=== PATIENT | male | born 1995 | race Caucasian/White ===

== ENCOUNTER 2019-09-28 23:26 | Emergency (ER) | payer MEDICAID, SELFPAY ==
[2019-09-28 23:32] VITALS: BP 147/81; PULSE 100; RESP 18; TEMP 36.9; O2SAT 98
--- NOTE | 2019-09-28 23:32 | ED.GENADUL_ITS ---
Discharge Plan Disposition Patient Disposition: HOME Condition: Good Discharge Details Chief Complaint: Laceration Clinical Impression: Finger laceration Primary Care Provider: Olga Bethea ED Provider: Gi Lee Discharge Instructions Instructions: Finger Laceration (ED) Additional Instructions: Keep wound clean, dry, covered. Monitor for signs of infection including redness, warmth, drainage, increased pain, fever/chills. If you develop these or other new/worsening symptoms please seek care urgently once again. Please keep covered when at work, this will help the wound from catching. Follow-up with primary care if pain persist in the next week. Referrals: Olga Bethea MD [Primary Care Provider] - Medical Decision Making Patient is a 24-year-old [id number] male presenting complaint of laceration to the left middle finger. Reports that 3 days ago he was opening a block of cheese with a knife when he slipped and cut his finger. Since that time, he has had discomfort over the area of laceration. Is not taking anything for his discomfort. His last tetanus was in 2017. On exam, he has a superficial 1 cm curvilinear laceration to the middle phalanx of the left middle finger. Sensation is intact, is good flexion against resistance, no evidence of ligamentous or bony injury. Advised that given the length of time since his injury, closure is not able to be performed at this time in order I feel that is needed at this point. I do not see any evidence of infection but I did discuss the symptoms with the patient when to seek care urgently once again. I advised that he try to keep this covered during the day as it catching or tugging may be what is causing his increased discomfort. Advised he may try Tylenol and ibuprofen as needed for discomfort. All his questions and concerns were addressed and he is in agreement with this plan. HPI General Mode of arrival: ambulatory . Date/Time Provider Initiated Documentation: 09/28/19 23:30 . Limitations to Documentation: no limitations . Information obtained by: patient and RN notes reviewed . History of Present Illness 24 year old M presents to the emergency department with the chief complaint of left middle finger laceration, described as moderate, with intensity rated at 5. Quality is described as aching, and is localized to the left and upper extremity. Patient reports no radiation. Patient started experiencing this day(s) (3) and it has been constant. No relieving factors improve symptom(s), No exacerbating factors reported . Patient notes no other symptoms.. Patient did receive the following treatments prior to arrival, none Related Data Allergies Allergy/AdvReac Type Severity Reaction Status Date / Time No Known Allergies Allergy Unverified 09/28/19 23:35 Review of Systems Constitutional Constitutional: Reports as per HPI, Denies chills and Denies fever(s) Musculoskeletal Musculoskeletal: Reports as per HPI Integumentary/Breasts Skin/Breast: Reports as per HPI Neurologic Neurologic: Reports as per HPI, Denies sensory deficit and Denies paresthesias [facility] Social History Smoking/Tobacco Use Status: Current every day Tobacco Type: cigarettes Alcohol Intake: current Alcohol Intake frequency: holidays/special occasions only Alcohol type: beer, wine and hard liquor Drug use: Daily Substance use type: marijuana Do you feel safe at home: Yes Do you feel safe in your relationship?: Yes Exam Const General: cooperative, healthy appearing, comfortable, no acute distress and well developed Nutritional Appearance: average body habitus and well nourished Orientation: alert and awake Resp Effort & Inspection: normal respiratory effort, able to speak in complete sentences and no respiratory distress Cardio Rate: regular rate Rhythm: regular rhythm Skin Trauma: laceration (1cm superficial laceration to middle phalanx left middle finger) Neuro General: alert and awake Cognition: normal cognition Speech: speech normal Gait: normal gait Sensory Exam: no sensory deficits noted Extrem General: full ROM, normal capillary refill and no joint enlargement Hand/finger images: 1. 1cm curvilinear laceration. Area is slightly swollen. He is able to flex against resistance without evidence of discomfort. Sensation intact. No active bleeding Psych Appearance: grossly normal and well kempt Mental Status: mental status grossly normal Speech and Movement: speech and movement normal
== END 2019-09-28 23:45 | disposition home or self-care (01) ==
LOC: ER 23:52
PROVIDERS: Emergency Provider Physician Assistant; PCP Internal Medicine
DX: S61.213A Laceration without foreign body of left middle finger without damage to nail, initial encounter (principal); W26.0XXA Contact with knife, initial encounter
CPT/HCPCS: 99282

== ENCOUNTER 2019-10-22 01:15 | Emergency (ER) | payer MEDICAID, SELFPAY ==
[2019-10-22] VITALS (46 sets, daily range): BP systolic 103–144; BP diastolic 55–92; PULSE 62–128; RESP 12–18; TEMP 36.2; O2SAT 94–100
--- NOTE | 2019-10-22 01:22 | ED.GENADUL_ITS ---
Discharge Plan Disposition Patient Disposition: HOME Condition: Good Discharge Details Chief Complaint: OD/Poison Clinical Impression: Opiate overdose Primary Care Provider: Olga Bethea ED Provider: Beltran Giraldo Home Meds and New Rx's Prescriptions: No Action No Known Home Meds RF: 0 Discharge Instructions Additional Instructions: You overdosed tonight and almost . Avoid drugs in the future. Contact a investment recovery technician if you would like help. Return to ED if problems. Medical Decision Making Patient here after accidental heroin/fentanyl overdose. He snorted, did not inject. Did not receive Narcan. Still very much under the influence. Patient placed on nasal cannula oxygen with end-tidal CO2 detector. We will monitor him for apnea and desaturations. Will re-evaluate when more awake and conversant. 05:45 - Patient is now awake and alert, ambulatory, requesting discharge. Patient declines investment recovery technician. HPI General Mode of arrival: ambulatory . Date/Time Provider Initiated Documentation: 10/22/19 01:22 . Limitations to Documentation: no limitations . Information obtained by: patient, EMS and RN notes reviewed . HPI Narrative: Patient brought in by EMS after accidental overdose of heroin/fentanyl. 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 In the last week he began using again because of drama. He denies trying to harm himself. This was accidental. He denies any medical problems. He denies any medications. Related Data Home Medications Medication Instructions Recorded Confirmed Unknown [No Known Home Meds] 10/22/19 10/22/19 Allergies Allergy/AdvReac Type Severity Reaction Status Date / Time No Known Allergies Allergy Unverified 10/22/19 01:39 General Stated Complaint: OD/Poison SHAVONNE: 3 Review of Systems Narrative: As documented in HPI otherwise negative as below. Const: no fever, chills, weakness Resp: no cough, SOB, pleuritic pain CV: no CP, diaphoresis, edema, syncope GI: no abdominal pain, nausea, vomiting, diarrhea Neuro: no headache, numbness, focal weakness [facility] Medical History (Updated 10/22/19 @ 01:26 by Beltran Giraldo MD) Hepatitis C (Chronic 10/23/92) Surgical History (Updated 10/22/19 @ 01:26 by Beltran Giraldo MD) History of open reduction and internal fixation (ORIF) procedure (Resolved) Social History Smoking/Tobacco Use Status: Current every day Tobacco Type: cigarettes and smokeless tobacco Alcohol Intake: current Alcohol Intake frequency: holidays/special occasions only Alcohol type: beer, wine and hard liquor Drug use: Daily Substance use type: marijuana Do you feel safe at home: Yes Do you feel safe in your relationship?: Yes Exam Narrative Exam Narrative: Vitals: Afebrile. Initially tachycardic and hypertensive. Room air pulse ox normal while awake. Const: Obese male unable to stay awake but easily roused. HEENT: NC/AT. Normal facial exam. Eyes: Small minimally reactive pupils. Neck: Supple. Trachea midline. Lungs: Normal respiratory effort. Lungs are clear. Cor: RRR tachy without murmur/gallop. Good radial pulses. Neuro: Sleepy but able to wake and answer questions. No gross deficits. Course Vital Signs Vital signs: Vital Signs Temperature 97.2 F L 10/22/19 01:18 Pulse 121 H 10/22/19 01:18 Respiratory Rate 18 10/22/19 01:18 Blood Pressure 144/92 H 10/22/19 01:18 Pulse Oximetry 98 10/22/19 01:18 Temperature 97.2 F L 10/22/19 01:18 Temperature Source Tympanic 10/22/19 01:18 Pulse 121 H 10/22/19 01:18 Respiratory Rate 18 10/22/19 01:18 Blood Pressure 144/92 H 10/22/19 01:18 Blood Pressure Position Supine 10/22/19 01:18 Pulse Oximetry 98 10/22/19 01:18 Oxygen Delivery Method Room Air 10/22/19 01:18 Oxygen Flow Rate 0 10/22/19 01:18 Pain Level 0 10/22/19 01:18
--- NOTE | 2019-10-22 02:39 | NUR.NOTE ---
Nursing Note: vomited about 20 cc of gastric material, states feels better, speech clearer,more alert, continues with Oxygen at 2L, CO2 level maintained 36-42. MD notified.
--- NOTE | 2019-10-22 04:12 | NUR.NOTE ---
Nursing Note:patient sleeping vital signs stable.
--- NOTE | 2019-10-22 05:21 | NUR.NOTE ---
Nursing Note: patient awake, ambulated to the bathroom without difficulty, o2 sat remains stable 97-98% on room air, po fluids taken with no n/v, patient wishes to leave, MD aware.
== END 2019-10-22 05:55 | disposition home or self-care (01) ==
PROVIDERS: Emergency Provider Emergency Medicine; PCP Internal Medicine
DX: T40.4X1A Poisoning by other synthetic narcotics, accidental (unintentional), initial encounter (principal); T40.1X1A Poisoning by heroin, accidental (unintentional), initial encounter; R11.2 Nausea with vomiting, unspecified; R00.0 Tachycardia, unspecified
CPT/HCPCS: 99285; 99284

== ENCOUNTER 2021-04-07 16:02 | Emergency (ER) | payer MEDICAID, SELFPAY ==
[2021-04-07 16:14] VITALS: BP 139/91; PULSE 100; RESP 18; TEMP 36.7; O2SAT 98
--- NOTE | 2021-04-07 16:15 | DI.RAD_ITS ---
Exam(s) XR HAND LT COMPLETE EXAM: XR HAND LT COMPLETE CLINICAL HISTORY: injury, suspect open fracture. TECHNIQUE: 2D digital imaging was performed. COMPARISON: No exams were available for comparison FINDINGS: There is mild soft tissue swelling over the dorsal aspect of the hand. However, there is no evidence of fracture or dislocation. No radiopaque foreign body. No osseous lesions. IMPRESSION: DATA REPOSITORY: RADIATION DOSE DELIVERED:
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
[2021-04-07 17:19] LABS: Abs Immature Grans 0.01 10^3/uL (0.0-0.06); Absolute Basophil Count 0.06 10^3/uL (0.0-0.2); Absolute Eosinophil Count 0.13 10^3/uL (0.0-0.7); Absolute Lymphocyte Count 1.85 10^3/uL (1.2-3.4); Absolute Monocyte Count 0.69 10^3/uL (0.1-0.8); Absolute Neutrophil Count 4.64 10^3/uL (1.2-6.7); Basophils % 0.8; Eosinophils % 1.8; HCT 46.9 % (40.0-50.0); Immature Grans % 0.1; Lymphocytes % 25.1; MCH 31.7 pg (27.0-33.0); MCHC 34.1 % (32.0-36.0); MCV 92.9 fL (80-95); MPV 9.8 fL (8.0-11.0); Monocytes % 9.3; Neutrophils % 62.9; Nucleated RBC 0 %; Platelet Count 284 10^3/uL (130-400); RBC 5.05 10^6/uL (4.36-5.78); RDW 12.6 % (11.8-14.1); RDW-SD 43.4 fL; WBC 7.38 10^3/uL (4.4-10.8)
[2021-04-07 17:29] VITALS: BP 134/77; PULSE 89; RESP 16; TEMP 36.9; O2SAT 98
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
[2021-04-07 18:09] LABS: Anion Gap 9.9 mmol/L (3-11); BUN 24 mg/dL (7-18); C-Reactive Protein 0.92 mg/dL (0.0-0.3); CO2 28.1 mmol/L (21.0-32.0); CREATININE 1.2 mg/dL (0.70-1.30); Calcium 9.3 mg/dL (8.5-10.1); Chloride 104 mmol/L (98-107); Glucose 133 mg/dL (74-106); Potassium 4.2 mmol/L (3.5-5.1); Sodium 142 mmol/L (136-145)
[2021-04-07] MEDS: Cephalexin 500 MG CAP, 4 CAPS/BTL PO (18:19)
[2021-04-07 18:58] VITALS: BP 124/75; PULSE 89; RESP 16; TEMP 36.7; O2SAT 98
== END 2021-04-07 18:52 | disposition home or self-care (01) ==
PROVIDERS: Emergency Provider Physician Assistant
DX: L03.114 Cellulitis of left upper limb (principal); S61.412A Laceration without foreign body of left hand, initial encounter; W27.0XXA Contact with workbench tool, initial encounter
CPT/HCPCS: 80048; 96365; 99284; 73130; 85025; 86140; 99283; J0690

== ENCOUNTER → 2022-01-09 12:37 | Outpatient (CLI) | payer MEDICAID, SELFPAY ==
--- NOTE | 2022-01-09 | DI.RAD_ITS ---
Exam(s) XR RIBS BI INCLUDE CHEST EXAM: XR RIBS BI INCLUDE CHEST CLINICAL HISTORY: ANTERIOR CHEST WALL PAIN R07.89 TECHNIQUE: 2D digital imaging was performed. COMPARISON: No exams were available for comparison FINDINGS: MEDIASTINUM: Normal. HEART: Normal. PULMONARY VASCULATURE: Normal. LUNGS: Clear. PLEURAL SPACE: No pleural effusion or pneumothorax. BONE:Normal. RIGHT RIBS: Normal. OTHER FINDINGS:Normal. IMPRESSION: 1. No acute pulmonary findings. 2. Unremarkable right ribs. DATA REPOSITORY: RADIATION DOSE DELIVERED:
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
== END ==
PROVIDERS: Visit Provider Physician Assistant Medical
DX: M25.512 Pain in left shoulder (principal); R07.81 Pleurodynia; W19.XXXA Unspecified fall, initial encounter
CPT/HCPCS: 71046; 71110; 73030

== ENCOUNTER → 2022-03-26 13:43 | Outpatient (CLI) | payer OTHER, MEDICAID, SELFPAY ==
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
== END ==
PROVIDERS: Visit Provider Physician Assistant
DX: S69.81XA Other specified injuries of right wrist, hand and finger(s), initial encounter
CPT/HCPCS: 73130

== ENCOUNTER 2022-06-28 07:53 | Emergency (ER) | payer OTHER, SELFPAY ==
--- NOTE | 2022-06-28 08:00 | DI.RAD_ITS ---
Exam(s) XR ANKLE LT COMPLETE EXAM: XR ANKLE LT COMPLETE CLINICAL HISTORY: twisted ankle, pain lateral malleolus, r/o fx TECHNIQUE: 2D digital imaging was performed of the left ankle. Three images were obtained. AP, lat eral and oblique views were obtained. COMPARISON: No exams were available for comparison FINDINGS: BONES: No acute fracture is present. No bony destructive lesion is seen. JOINTS:The ankle mortise is normally aligned. SOFT TISSUE: Normal. IMPRESSION: Unremarkable radiographs of the left ankle. DATA REPOSITORY: RADIATION DOSE DELIVERED:
--- NOTE | 2022-06-28 08:00 | DI.RAD_ITS ---
Exam(s) XR FOOT LT COMPLETE EXAM: XR FOOT LT COMPLETE CLINICAL HISTORY: twisted ankle, pain dorsolateral foot, r/o fx. TECHNIQUE: 2D digital imaging was performed of the left foot. Three images were obtained. AP, obli que and lateral views were obtained. COMPARISON: No exams were available for comparison FINDINGS: BONES: No acute fracture is present. No bony destructive lesion is seen. JOINTS: No dislocation present. SOFT TISSUE: Normal. IMPRESSION: Unremarkable radiographs of the left foot. DATA REPOSITORY: RADIATION DOSE DELIVERED:
[2022-06-28 08:02] VITALS: BP 107/90; PULSE 101; RESP 18; TEMP 37.6; O2SAT 100
--- NOTE | 2022-06-28 08:06 | ED.GENADUL_ITS ---
Discharge Plan Disposition Patient Disposition: HOME Condition: Stable Discharge Details Clinical Impression: Left ankle sprain Primary Care Provider: None,None ED Provider: Cathy Campos Home Meds and New Rx's Prescriptions: Continued ibuprofen 200 mg Capsule 600 mg PO PRN PRN Discharge Instructions Instructions: Ankle Sprain (ED) Additional Instructions: Your x-rays today are negative for fracture and your symptoms are likely secondary to an ankle sprain. Rest, ice, and elevate the affected area as much as possible. Alternate tylenol and motrin as needed and directed for pain. Use the crutches to help with ambulation and limit weightbearing. Follow-up with orthopedics if your symptoms do not improve or worsen. Return immediately to the emergency department if you develop any worsening or new concerning symptoms. Stand Alone Forms: Work Release Referrals: Gato Badillo MD [ [facility] STAFF PHYSICIAN] - Discharge Data Discharge Physician: Cathy Campos Medical Decision Making 27yo M with a history of left ankle pain after twisting his ankle at work this morning. Patient has tenderness, mild edema and ecchymosis to the left lateral malleolus and dorsal lateral foot. There is no obvious deformity. He is otherwise neurovascularly intact. Patient referred for x-rays which were unremarkable. Discussed with patient that his symptoms appears most likely consistent with sprain. Ankle stirrup splint placed and crutches provided. Instructed on the importance of RICE. Work note requested. He was given orthopedic follow-up evaluation if needed. Usual and customary return precautions given prior to discharge. Medical Records Medical records reviewed: Yes I reviewed the patient's medical records. Imaging Data Radiologic Study: Radiologist's impression: XR ANKLE LT COMPLETE CLINICAL HISTORY:? twisted ankle, pain lateral malleolus, r/o fx TECHNIQUE:? 2D digital imaging was performed of the left ankle.? Three images were obtained.? AP, lateral and oblique views were obtained. COMPARISON:? No exams were available for comparison FINDINGS: BONES: No acute fracture is present. No bony destructive lesion is seen. JOINTS:The ankle mortise is normally aligned. SOFT TISSUE: Normal. IMPRESSION: Unremarkable radiographs of the left ankle.? XR FOOT LT COMPLETE CLINICAL HISTORY: ? twisted ankle, pain dorsolateral foot, r/o fx.? TECHNIQUE:? 2D digital imaging was performed of the left foot.? Three images were obtained.? AP, oblique and lateral views were obtained. COMPARISON:? No exams were available for comparison FINDINGS: BONES: No acute fracture is present. No bony destructive lesion is seen. JOINTS: No dislocation present. SOFT TISSUE: Normal. IMPRESSION: Unremarkable radiographs of the left foot. HPI General Mode of arrival: ambulatory . Date/Time Provider Initiated Documentation: 06/28/22 08:06 . Limitations to Documentation: no limitations . Information obtained by: patient . HPI Narrative: Patient is a 27-year-old male who presents with left ankle pain after twisting his ankle at work this morning. Patient states he was running to get to the bathroom and rolled his lateral ankle. He has not taken any medication for pain. Related Data Home Medications Medication Instructions Recorded Confirmed ibuprofen 200 mg capsule 600 mg PO PRN PRN 04/07/21 06/28/22 Allergies Allergy/AdvReac Type Severity Reaction Status Date / Time No Known Allergies Allergy Unverified 06/28/22 08:06 General Stated Complaint: Orthopedic SHAVONNE: 4 Review of Systems All systems reviewed & are unremarkable except as noted in HPI and below Constitutional Constitutional: Reports as per HPI, Denies chills and Denies fever(s) Eyes Eyes: Denies blurry vision ENT Ears, Nose, Mouth, and Throat: Denies dizziness, Denies sore throat and Denies throat swelling Cardiovascular Cardiovascular: Denies chest pain and Denies dyspnea Respiratory Respiratory: Denies cough and Denies dyspnea Gastrointestinal Gastrointestinal: Denies abdominal pain, Denies diarrhea and Denies vomiting Genitourinary Genitourinary: Denies hematuria and Denies dysuria Musculoskeletal Musculoskeletal: Denies back pain and Denies numbness Comments: left ankle pain Integumentary/Breasts Skin/Breast: Denies lesions and Denies rash Neurologic Neurologic: Denies dizziness, Denies localized weakness and Denies numbness Allergic/Immunologic Allergic/Immunologic: Denies throat swelling PFSH All Active Problems (Updated 06/28/22 @ 09:42 by Cathy Campos DO) Left ankle sprain (Acute) Cellulitis (Acute) Hand laceration (Acute) Hepatitis C (Chronic 10/23/92) Medical History (Updated 06/28/22 @ 09:42 by Cathy Campos DO) No significant past medical history Surgical History History of open reduction and internal fixation (ORIF) procedure Social History Smoking/Tobacco Use Status: Current every day Tobacco Type: smokeless tobacco Smoking risk assessment performed?: Yes Alcohol Intake: current Alcohol Intake frequency: a few times a month Alcohol type: beer, wine and hard liquor Drug use: Daily Substance use type: marijuana Current gender identity: male Do you feel safe at home: Yes Do you feel safe in your relationship?: Yes Additional Social history: Patient states unknown vaccination history. Exam Const General: cooperative, healthy appearing and no acute distress Orientation: alert, awake and oriented x3 HENMT Head: normal to inspection Mouth: oral mucosae normal Eyes General: appearance normal, both eyes and all related structures Neck Neck: normal visual inspection Resp Effort & Inspection: normal respiratory effort and able to speak in complete sentences Cardio Rate: regular rate Skin General skin exam: no rashes or lesions noted Neuro General: patient alert, patient awake and patient oriented x3 Motor: muscle tone normal throughout Extrem Ankle/foot/toe images: 1. Tenderness to palpation overlying left lateral malleolus in the superior, posterior and inferior regions. There is also mild edema and ecchymosis to the dorsal lateral foot just anterior to the lateral malleolus. There is no obvious deformity. L DP/PT pulses intact. Psych Appearance: grossly normal Affect: normal affect Course Vital Signs Vital signs: Vital Signs Temperature 99.7 F H 06/28/22 08:02 Pulse 101 H 06/28/22 08:02 Respiratory Rate 18 06/28/22 08:02 Blood Pressure 107/90 06/28/22 08:02 Pulse Oximetry 100 06/28/22 08:02 Temperature 99.7 F H 06/28/22 08:02 Temperature Source Skin 06/28/22 08:02 Pulse 101 H 06/28/22 08:02 Respiratory Rate 18 06/28/22 08:02 Blood Pressure 107/90 06/28/22 08:02 Blood Pressure Position Sitting 06/28/22 08:02 Pulse Oximetry 100 06/28/22 08:02 Oxygen Delivery Method Room Air 06/28/22 08:02 Oxygen Flow Rate 0 06/28/22 08:02 Pain Level 7 06/28/22 08:02
[2022-06-28] MEDS: Ibuprofen 600 MG TAB PO (08:12)
[2022-06-28 09:14] VITALS: BP 107/90; PULSE 90; RESP 16; TEMP 37; O2SAT 100
--- NOTE | 2022-07-01 11:30 | NUR.NOTE ---
Nursing Note: Revised work note by Dr. Cazares faxed to pt place of employment at patient request. Fax [phone]. Sent to be scanned into pt record.
== END 2022-06-28 09:10 | disposition home or self-care (01) ==
PROVIDERS: Emergency Provider Physician Assistant
DX: S93.402A Sprain of unspecified ligament of left ankle, initial encounter (principal); F17.290 Nicotine dependence, other tobacco product, uncomplicated; X50.1XXA Overexertion from prolonged static or awkward postures, initial encounter; Y93.02 Activity, running; Y92.002 Bathroom of unspecified non-institutional (private) residence as the place of occurrence of the external cause; Y99.0 Civilian activity done for income or pay
CPT/HCPCS: 29515; 99284; 73610; 73630

== ENCOUNTER 2024-06-15 22:22 | Emergency (ER) | payer MEDICAID, SELFPAY ==
[2024-06-15 22:25] VITALS: BP 143/95; PULSE 104; RESP 18; TEMP 36.4; O2SAT 100
--- NOTE | 2024-06-15 22:39 | W.ED.GENAD ---
Discharge Plan Disposition Patient Disposition: Home Condition: Good Discharge Details Clinical Impression: Pain, dental, Homeless Primary Care Provider: None,None ED Provider: Jamie Mcelroy Home Meds and New Rx's Prescriptions: New amoxicillin 500 mg capsule 500 mg PO TID 7 Days Qty: 21 0RF Discharge Instructions Instructions: Dental Pain ED Additional Instructions: At this time you do have a dental infection. The block we administered should help improve your pain. Please take 800 mg of ibuprofen every 6 hours and 1000 mg of Tylenol every 6 hours to help with the inflammation and pain. These are the maximum doses. Please take the antibiotic as directed to help with the infection in your tooth. Please use the dental list that we have provided to contact the dentist for prompt follow-up and evaluation for tooth removal. If you notice any worsening of your symptoms, or any new symptoms such as difficulty swallowing, difficulty breathing, vomiting, diarrhea, fever, chills, shortness of breath, chest pain, numbness, weakness, or fainting , please return immediately to the emergency department for reevaluation. Please follow up with your primary care provider as soon as possible for reassessment and reevaluation. As always, it was a pleasure participating in your medical care today. HPI General Date/Time Provider Initiated Documentation: 06/15/24 22:27. HPI Narrative: This is a pleasant 29-year-old male with a past medical history of hepatitis C, previous drug abuse, current tobacco chewer, who presents today with toothache for the last 2 days. Patient states that in the top left aspect of his mouth he has had notable pain. He has a history of notable dental caries and has not been able to get them managed operatively. He denies fever or chills. Pain has been present for the last 2-1/2 days, then tonight it got notably worse. He did take Tylenol without any improvement. He denies any difficulty swallowing or drinking. He denies any headache or fever or chills. No other complaints at this time. Related Data Home Medications ?Medication ?Instructions ?Recorded ?Confirmed amoxicillin 500 mg capsule 500 mg PO TID 7 days #21 caps 06/15/24 Previous Rx's ?Medication ?Instructions ?Recorded amoxicillin 500 mg capsule 500 mg PO TID 7 days #21 caps 06/15/24 Allergies Allergy/AdvReac Type Severity Reaction Status Date / Time No Known Allergies Allergy Unverified 06/15/24 22:30 General Stated Complaint: DentalOral SHAVONNE: 4 Review of Systems All systems reviewed & are unremarkable except as noted in HPI and below Exam Narrative Exam Narrative: 1.Const: Well-nourished, Well-developed, appearing stated age 2.Eyes: PERRL, no conjunctival injection, and symmetrical lids. 3.ENT: Atraumatic external nose and ears. Moist MM. Neck: Symmetric, trachea midline, No thyromegaly. Notable poor dentition throughout, no evidence of periapical abscess, multiple broken and rotting teeth in the upper dental areas. No evidence of Ludewig's angina, neck swelling, otitis media or other abnormality 4.CVS: +S1/S2, No murmurs or gallops. Peripheral pulses 2+ and equal in all extremities. Brisk capillary refill in all extremities. 5.RESP: Unlabored respiratory effort. Clear to auscultation bilaterally. No wheezes rales or rhonchi 6.GI: Soft, Nontender/Nondistended, No hepatosplenomegaly. No guarding or rebound. 7.MSK: Normocephalic/Atraumatic, Extremities w/o deformity or ttp No cyanosis or clubbing, Normal movement of all extremities 8.Skin: Warm, Dry. No rashes or lesions. 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 Sensation grossly intact, no focal neurologic deficits. 10.Psych: (AAO) x3. Appropriate mood and affect Course Vital Signs Vital signs: Vital Signs Temperature 36.4 C L 06/15/24 22:25 Pulse 104 H 06/15/24 22:25 Respiratory Rate 18 06/15/24 22:25 Blood Pressure 143/95 H 06/15/24 22:25 Pulse Oximetry 100 06/15/24 22:25 Temperature 36.4 C L 06/15/24 22:25 Pulse 104 H 06/15/24 22:25 Respiratory Rate 18 06/15/24 22:25 Respiratory Effort Normal 06/15/24 22:28 Blood Pressure 143/95 H 06/15/24 22:25 Pulse Oximetry 100 06/15/24 22:25 Oxygen Delivery Method Room Air 06/15/24 22:25 Oxygen Flow Rate 0 06/15/24 22:25 Procedures Nerve Block Nerve Block 1: Time out performed: Yes Local Anesthetic: Bupivicaine 0.25% Amount of anesthesia used (mL): 5 Side: left Intraoral Nerve Block: superior alveolar Procedure Successful: Yes Patient Tolerated Procedure: well and no complications Complications: none Medical Decision Making This is a pleasant 29-year-old male with a past medical history of hepatitis C, previous drug abuse, current tobacco chewer, who presents today with toothache for the last 2 days. Patient states that in the top left aspect of his mouth he has had notable pain. He has a history of notable dental caries and has not been able to get them managed operatively. He denies fever or chills. Pain has been present for the last 2-1/2 days, then tonight it got notably worse. He did take Tylenol without any improvement. He denies any difficulty swallowing or drinking. He denies any headache or fever or chills. No other complaints at this time. Patient is currently homeless Area was examined, multiple broken off and rotting and decrepit teeth are present. No periapical abscess thankfully. No evidence of Ludewig's angina or airway compromise whatsoever. Dental block was offered and the patient consented. Risks and benefits were reviewed. Procedure was performed and patient had complete resolution of his symptoms. No adverse reaction. He will be started on 500 of amoxicillin every 8 hours. He will be given a dose here, 2 doses to go home with and a prescription as well. He will be given Toradol here. Gave dental sheet for further outpatient management. Discussed red flags which to return. I have extensively reviewed the treatment plan and discharge instructions with the patient. I have addressed all patient concerns at this time. The patient was made aware of what symptoms to monitor for that would warrant a return to the emergency department. Discussed the plan with the patient, they demonstrate verbal understanding and agreement with our assessment and plan at this time. The documentation in this chart was dictated using [employer] dictation software. Please excuse any dictation errors. Quality:SDOH Health Related Social Needs: No Data to Display PFSH All Active Problems Homeless (Acute) Pain, dental (Acute) Cellulitis (Acute) Hand laceration (Acute) Hepatitis C (Chronic 10/23/92) Medical History No significant past medical history Surgical History History of open reduction and internal fixation (ORIF) procedure Social History Smoking/Tobacco Use Status: Current every day Tobacco Type: smokeless tobacco Smoking risk assessment performed?: Yes Alcohol Intake: current Alcohol Intake frequency: a few times a month Alcohol type: beer, wine and hard liquor Drug use: Daily Substance use type: marijuana Current gender identity: male Do you feel safe at home: Yes Do you feel safe in your relationship?: Yes Additional Social history: Patient states unknown vaccination history.
[2024-06-15] MEDS: Amoxicillin 500 MG CAP 1500 MG PO (23:15)
[2024-06-15] MEDS: Bupivacaine 0.5% Pres-Free 30 ML VIAL (23:15)
[2024-06-15] MEDS: Ketorolac 30 MG/ML VIAL IM (23:15)
== END 2024-06-15 23:08 | disposition home or self-care (01) ==
LOC: ER 23:07
PROVIDERS: Emergency Provider Student in an Organized Health Care Education/Training Program
DX: K08.89 Other specified disorders of teeth and supporting structures (principal); F17.220 Nicotine dependence, chewing tobacco, uncomplicated; Z59.00 Homelessness unspecified
CPT/HCPCS: 64400; 99283; J0665; J1885

== ENCOUNTER 2024-06-15 23:35 | Emergency (ER) | payer MEDICAID, SELFPAY ==
--- NOTE | 2024-06-15 00:39 | DI.RAD_ITS ---
Exam(s) XR PORTABLE CHEST AP EXAM: XR PORTABLE CHEST AP CLINICAL HISTORY: cough, SOB TECHNIQUE: 2D digital imaging was performed of the chest. One image was obtained. An AP view was ob tained. COMPARISON: CR XR RIBS BI INCLUDE CHEST from 01/09/2022 FINDINGS: MEDIASTINUM: Normal. HEART: Normal. PULMONARY VASCULATURE: Normal. LUNGS: Clear. PLEURAL SPACE: No pleural effusion or pneumothorax. BONE:Within normal limits for the patient's age. OTHER FINDINGS:Normal. IMPRESSION: No acute pulmonary findings. DATA REPOSITORY: RADIATION DOSE DELIVERED:
--- NOTE | 2024-06-15 23:30 | RT.EKG_ITS ---
APPROVED REPORT Exam: Resting ECG Reason for Exam: short of breath Patient Location: E HR:113 bpm ECG Measurements Heart Rate 113 AXIS IL 139 P 82 QRSd 91 QRS 9 QT 328 T 68 QTc 451 Conclusion Sinus tachycardia...rate> 99 Probable anterolateral infarct, old...Q>35mS, abnrm ST-T, V2-V6,I,aVL PHysician: Sinus tachycardia, intervals normal, no significant ST elevations or depressions. No HANS RI.
[2024-06-15 23:37] VITALS: BP 173/154; PULSE 124; RESP 16; TEMP 37; O2SAT 95
[2024-06-15 23:41] VITALS: RESP 16
[2024-06-15] MEDS: predniSONE 20 MG TAB 60 MG PO (23:51)
[2024-06-15] MEDS: Albuterol/Ipratropium 3 ML UPD VIAL 6 ML UPD (23:51)
[2024-06-16] VITALS (19 sets, daily range): BP systolic 71–128; BP diastolic 26–89; PULSE 79–99; O2SAT 93–99
--- NOTE | 2024-06-16 00:29 | W.ED.GENAD ---
Discharge Plan Disposition Patient Disposition: Home Condition: Good Discharge Details Clinical Impression: Asthma exacerbation Primary Care Provider: None,None ED Provider: Jamie Mcelroy Home Meds and New Rx's Prescriptions: No Action amoxicillin 500 mg capsule 500 mg PO TID 7 Days Qty: 21 0RF Discharge Instructions Instructions: Asthma, Adult ED Additional Instructions: At this time your symptoms appear consistent with mild asthma exacerbation. This may have been brought about by the use of Toradol which is similar to aspirin and ibuprofen. Please avoid ibuprofen/Motrin, and just stick with Tylenol for your tooth pain. Please continue to take your antibiotic for your tooth, and follow-up closely with your dentist. Please take the inhaler, 2 puffs twice a day for the next week. If you notice any worsening of your symptoms, or any new symptoms such as vomiting, diarrhea, fever, chills, shortness of breath, chest pain, numbness, weakness, or fainting , please return immediately to the emergency department for reevaluation. Please follow up with your primary care provider as soon as possible for reassessment and reevaluation. As always, it was a pleasure participating in your medical care today. HPI General Date/Time Provider Initiated Documentation: 06/15/24 23:42. HPI Narrative: This is a pleasant 29-year-old male with a past medical history of asthma who chews tobacco and does smoke weed who was just here about an hour and a half ago for dental infection. At that time he had a mild dental infection was given a dental block without complication. He was given a first dose of amoxicillin and also IM Toradol. Patient was discharged and went back to his car. Over the next hour he noticed that he started to feel slightly short of breath. He stated that it felt similar to his previous asthma attacks, they took some puffs from an inhaler, but began to feel more more short of breath. He came back to the ER for reassessment. He has taken antibiotics before but he is not sure which one specifically. He usually takes Tylenol and not ibuprofen. He denies any history of allergic reaction before. He admits to nausea but denies vomiting. No diarrhea. No rash. No other complaints at this time. Related Data Home Medications ?Medication ?Instructions ?Recorded ?Confirmed amoxicillin 500 mg capsule 500 mg PO TID 7 days #21 caps 06/15/24 06/16/24 Previous Rx's ?Medication ?Instructions ?Recorded amoxicillin 500 mg capsule 500 mg PO TID 7 days #21 caps 06/15/24 Allergies Allergy/AdvReac Type Severity Reaction Status Date / Time No Known Allergies Allergy Verified 06/16/24 00:07 General Stated Complaint: SOB/SuddenOnset SHAVONNE: 3 Review of Systems All systems reviewed & are unremarkable except as noted in HPI and below Exam Narrative Exam Narrative: 1.Const: Well-nourished, Well-developed, appearing stated age 2.Eyes: PERRL, no conjunctival injection, and symmetrical lids. 3.ENT: Atraumatic external nose and ears. Moist MM. Neck: Symmetric, trachea midline, No thyromegaly. No edema in the posterior oropharynx, no evidence of angioedema, no swelling over the gums. No petechiae. No hoarseness in the voice. 4.CVS: +S1/S2, No murmurs or gallops. Peripheral pulses 2+ and equal in all extremities. Brisk capillary refill in all extremities. 5.RESP: Unlabored respiratory effort. Clear to auscultation bilaterally. Minimal wheeze. No rhonchi or rales. 6.GI: Soft, Nontender/Nondistended, No hepatosplenomegaly. No guarding or rebound. 7.MSK: Normocephalic/Atraumatic, Extremities w/o deformity or ttp No cyanosis or clubbing, Normal movement of all extremities 8.Skin: Warm, Dry. No rashes or lesions. No evidence of hives. 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 Sensation grossly intact, no focal neurologic deficits. 10.Psych: (AAO) x3. Appropriate mood and affect Course Vital Signs Vital signs: Vital Signs Temperature 37 C 06/15/24 23:37 Pulse 124 H 06/15/24 23:37 Respiratory Rate 16 06/15/24 23:37 Blood Pressure 173/154 H 06/15/24 23:37 Pulse Oximetry 95 06/15/24 23:37 Temperature 37 C 06/15/24 23:37 Pulse 124 H 06/15/24 23:37 Respiratory Rate 16 06/15/24 23:41 Respiratory Effort Short of Breath 06/15/24 23:41 Respiratory Depth Normal 06/15/24 23:41 Blood Pressure 173/154 H 06/15/24 23:37 Blood Pressure Position Supine 06/15/24 23:37 Pulse Oximetry 95 06/15/24 23:37 Oxygen Delivery Method Room Air 06/15/24 23:37 Oxygen Flow Rate 0 06/15/24 23:37 Pain Level 0 06/15/24 23:37 Medical Decision Making This is a pleasant 29-year-old male with a past medical history of asthma who chews tobacco and does smoke weed who was just here about an hour and a half ago for dental infection. At that time he had a mild dental infection was given a dental block without complication. He was given a first dose of amoxicillin and also IM Toradol. Patient was discharged and went back to his car. Over the next hour he noticed that he started to feel slightly short of breath. He stated that it felt similar to his previous asthma attacks, they took some puffs from an inhaler, but began to feel more more short of breath. He came back to the ER for reassessment. He has taken antibiotics before but he is not sure which one specifically. He usually takes Tylenol and not ibuprofen. He denies any history of allergic reaction before. He admits to nausea but denies vomiting. No diarrhea. No rash. No other complaints at this time. Exam demonstrates well-appearing but slightly anxious male. Heart rate is elevated at 124. Oxygen saturation at 95%. Minimal wheeze auscultated. No signs of angioedema, swelling, neck mass, no vomiting or diarrhea. No hives. Symptoms appear inconsistent with anaphylaxis. I do worry that perhaps the Toradol and the Szymanski inhibition could have potentially brought out a mild asthma exacerbation. We will give oral steroids and DuoNebs x 2. Patient otherwise remains hemodynamically stable. Symptoms do not appear consistent with an anaphylactic reaction to the antibiotic. No hives, no vomiting, no diarrhea, no angioedema. Will monitor closely and reassess. EKG: Sinus tachycardia, intervals normal, no significant ST elevations or depressions. No STEMI. 1:50 AM On reassessment patient is feeling much better. Wheeze has resolved, no more shortness of breath, no hypoxemia after the breathing treatments and steroid. Patient feels well and would like to go home. Chest x-ray negative for acute process. Will give patient a Symbicort for home use. Patient shows no evidence of anaphylaxis or significant life-threatening respiratory complication. Patient stable for discharge. No other concerning abnormality noted at this time. Discussed red flags for which to return. I have extensively reviewed the treatment plan and discharge instructions with the patient and their family. I have addressed all patient concerns at this time. The patient and family was made aware of what symptoms to monitor for that would warrant a return to the emergency department. Discussed the plan with the patient and family, they demonstrate verbal understanding and agreement with our assessment and plan at this time. The documentation in this chart was dictated using [employer] dictation software. Please excuse any dictation errors. FINDINGS: Lungs: Normal. Pleural spaces: Unremarkable. No pleural effusion. No pneumothorax. Heart/Mediastinum: Normal. Bones/joints: No acute abnormality. IMPRESSION: No acute findings. Thank you for allowing us to participate in the care of your patient. Dictated and Authenticated by: Jacob Woods MD 06/16/2024 1:34 AM Eastern Time ([place] & [place]) Quality:SDOH Health Related Social Needs: No Data to Display PFSH All Active Problems (Updated 06/16/24 @ 00:58 by Jamie Mcelroy DO) Asthma exacerbation (Acute) Homeless (Acute) Pain, dental (Acute) Cellulitis (Acute) Hand laceration (Acute) Hepatitis C (Chronic 10/23/92) Medical History No significant past medical history Surgical History History of open reduction and internal fixation (ORIF) procedure Social History Smoking/Tobacco Use Status: Current every day Tobacco Type: smokeless tobacco Smoking risk assessment performed?: Yes Alcohol Intake: current Alcohol Intake frequency: a few times a month Alcohol type: beer, wine and hard liquor Drug use: Daily Substance use type: marijuana Current gender identity: male Do you feel safe at home: Yes Do you feel safe in your relationship?: Yes Additional Social history: Patient states unknown vaccination history.
[2024-06-16] MEDS: Inhaler, Assist Device 1 EACH MC (01:18)
[2024-06-16] MEDS: Budesonide/Formoterol 160/4.5 6 GM 60 PUFF INH IH (01:18)
--- NOTE | 2024-06-16 01:34 | DI.VRAD_ITS ---
PROCEDURE INFORMATION: Exam: XR Chest Exam date and time: 06/16/2024 12:34 AM Age: 29 years old Clinical indication: Cough and other: SOB TECHNIQUE: Imaging protocol: Radiologic exam of the chest. Views: 1 view. COMPARISON: CR XR RIBS BI INCLUDE CHEST 01/09/2022 11:17 AM FINDINGS: Lungs: Normal. Pleural spaces: Unremarkable. No pleural effusion. No pneumothorax. Heart/Mediastinum: Normal. Bones/joints: No acute abnormality. IMPRESSION: No acute findings. Dictated and Authenticated by: Jacob Woods MD. Ordering:JAYME Ayala MD
--- NOTE | 2024-06-16 12:02 | NUR.NOTE ---
Access chart to reconcile EKG's in [facility] with [facility]. Duplicate order cancelled. Nursing Note:
== END 2024-06-16 01:59 | disposition home or self-care (01) ==
PROVIDERS: Emergency Provider Student in an Organized Health Care Education/Training Program
DX: J45.901 Unspecified asthma with (acute) exacerbation (principal); R00.0 Tachycardia, unspecified; F17.220 Nicotine dependence, chewing tobacco, uncomplicated
CPT/HCPCS: 93005; 94640; 99285; 71045; 93010; 99284; J7512; J7620

== ENCOUNTER 2025-07-05 16:40 | Outpatient (REF) | payer MEDICAID, SELFPAY ==
[2025-07-05 20:17] LABS: Abs Immature Grans 0.02 10^3/uL (0.0-0.06); HCT 47.1 % (40.0-50.0); HGB 15.7 g/dL (13.5-17.5); Immature Grans % 0.2 %; MCH 30.9 pg (27.0-33.0); MCHC 33.3 % (32.0-36.0); MCV 93 fL (80-95); MPV 10.9 fL (8.0-11.0); Platelet Count 275 10^3/uL (130-400); RBC 5.08 10^6/uL (4.36-5.78); RDW 12.8 % (11.8-14.1); RDW-SD 44.1 fL; WBC 8.57 10^3/uL (4.4-10.8)
[2025-07-05 20:36] LABS: Hemoglobin A1C 5.4 % (<5.7)
== END 2025-07-05 16:41 | disposition home or self-care (01) ==
LOC: NCHCN 16:40
PROVIDERS: PCP Family Medicine; Visit Provider Family Medicine
DX: Z86.19 Personal history of other infectious and parasitic diseases (principal); Z09 Encounter for follow-up examination after completed treatment for conditions other than malignant neoplasm
CPT/HCPCS: 80053; 80061; 86803; 83036; 84443; 85025

== ENCOUNTER 2025-07-14 11:08 | Outpatient (CLI) | payer MEDICAID, SELFPAY ==
[2025-07-14 12:25] LABS: Calculated LDL 60 mg/dL (<100); Cholesterol 129 mg/dL (<200); HDL Cholesterol 55 mg/dL (>or=40); TSH 1.65 uIU/mL (0.36-3.74); Triglyceride 73 mg/dL (<150)
== END 2025-07-14 11:09 | disposition home or self-care (01) ==
LOC: LBO 11:09
PROVIDERS: PCP Family Medicine; Visit Provider Family Medicine
DX: Z00.00 Encounter for general adult medical examination without abnormal findings (principal)
CPT/HCPCS: 36415; 80061; 86803; 84443

== ENCOUNTER 2025-07-18 04:46 | Outpatient (CLI) | payer MEDICAID, SELFPAY ==
[2025-07-18 19:37] LABS: Hepatitis C Ab w Rflx HCV PCR Reactive (Negative)
== END 2025-07-18 04:47 | disposition home or self-care (01) ==
LOC: LBO 04:46
PROVIDERS: PCP Family Medicine; Visit Provider Family Medicine
DX: Z86.19 Personal history of other infectious and parasitic diseases (principal)
CPT/HCPCS: 36415; 86803; 87522

== ENCOUNTER 2025-08-30 01:31 | Outpatient (CLI) | payer MEDICAID, SELFPAY ==
--- NOTE | 2025-08-30 | DI.US_ITS ---
Exam(s) US RENAL EXAM: US RENAL CLINICAL HISTORY: ABD PAIN R10.9 LT FLANK PAIN HX KIDNEY STONES ? RENAL STONE TECHNIQUE: Ultrasound of both kidneys performed using standard protocol. COMPARISON: No exams were available for comparison FINDINGS: RIGHT KIDNEY: Measures 9.9 cm in length. No cysts evident. Normal cortical thickness and corticomedullary differentiation .No solid masses No intrarenal calculi nor hydronephrosis. LEFT KIDNEY: Measures 9.7 cm in length. No cysts evident. Normal cortical thickness and corticomedullary differentiaion. No solids masses. No intrarenal calculi nor hydonephrosis. URINARY BLADDER: Prevoid volume is 152 cc Postvoid volume is 3 cc No evidence of bladder mass nor diverticuli. Ureterovesical jets: Both not visualized Prostate gland: Normal size IMPRESSION: 1. No significant ultrasound findings in the kidneys. 2. No obvious abnormality in the urinary bladder. Both ureterovesical jets were not visualized, this of questionable significance as there is no hydronephrosis evident. DATA REPOSITORY:
== END 2025-08-30 01:51 ==
PROVIDERS: PCP Family Medicine; Visit Provider Family Medicine
DX: R10.9 Unspecified abdominal pain (principal)
CPT/HCPCS: 76770